=== PATIENT | female | born 1985 | race Caucasian/White ===

== ENCOUNTER → 2018-08-06 09:52 | Outpatient (CLI) | payer OTHER, SELFPAY ==
[2018-08-06 10:20] LABS: Add Manual Diff / Slide Review NO; Basophils Percent Auto 0.8 % (0-2); Hematocrit 38.9 % (36-46); Hemoglobin 13.2 g/dL (12.0-16.0); Mean Corpuscular Hemoglobin 29.7 PG (26-34); Mean Corpuscular Volume 87.3 fL (80-100); Monocytes Percent Auto 8.7 % (3-14); Neutrophils Absolute Auto 4300 /uL (3000-5900); Neutrophils Percent Auto 61.5 % (50-75); Platelet Count 174 X10^3/uL (150-400); Red Blood Cell Count 4.45 X10^6/uL (4.0-5.2); Red Cell Distribution Width 12.2 % (11.6-14.8)
[2018-08-06 10:51] LABS: Erythrocyte Sedimentation Rate 12 MM/HR (0-20)
[2018-08-06 11:25] LABS: C-Reactive Protein Quant < 0.5 mg/dL (<1.0)
== END ==
PROVIDERS: PCP Family Medicine; Visit Provider Naturopath
DX: R59.1 Generalized enlarged lymph nodes (principal)
CPT/HCPCS: 36415; 85025; 85651; 86140

== ENCOUNTER → 2019-07-13 06:39 | Outpatient (CLI) | payer OTHER, SELFPAY ==
[2019-07-13 08:49] LABS: Hematocrit 42.5 % (36-46); Hemoglobin 14.2 g/dL (12.0-16.0); Mean Corpuscular HGB Conc 33.5 % (30-36); Mean Corpuscular Hemoglobin 29.4 PG (26-34); Mean Corpuscular Volume 87.9 fL (80-100); Platelet Count 207 X10^3/uL (150-400); Red Blood Cell Count 4.84 X10^6/uL (4.0-5.2); Red Cell Distribution Width 13.1 % (11.6-14.8); White Blood Cell Count 4.6 X10^3/uL (4.5-11.0)
[2019-07-13 09:06] LABS: Alanine Aminotransferase 30 IU/L (9-52); Albumin 4.9 g/dL (3.5-5.0); Albumin Globulin Ratio 1.3 (1.0-2.8); Alkaline Phosphatase 61 U/L (38-126); Aspartate Aminotransferase 29 IU/L (14-36); Bilirubin Total 0.8 mg/dL (0.2-1.3); Blood Urea Nitrogen 12 mg/dL (7-17); Carbon Dioxide 24 mmol/L (22-32); Chloride 105 mmol/L (98-107); Cholesterol 179 mg/dL (140-199); Estimated Glomerular Filt Rate > 60.0 mL/min (>60); Globulin 3.8 g/dL (1.7-4.1); Glucose 88 mg/dL (70-100); HDL Cholesterol 79 mg/dL (40-60); HEMOLYSIS < 15 (0-50); LDL Cholesterol Calculated 88 mg/dL (<100); Potassium 4.5 mmol/L (3.4-5.1); Sodium 141 mmol/L (137-145); Total Protein 8.7 g/dL (6.3-8.2); Triglycerides 60 mg/dL (35-150)
[2019-07-13 09:20] LABS: Vitamin D 25 Hydroxy (D3) 66.6 ng/mL (30.0-100.0)
[2019-07-13 09:34] LABS: Thyroid Stimulating Hormone 1.59 uIU/mL (0.47-4.68)
== END ==
PROVIDERS: PCP Family Medicine; Visit Provider Naturopath
DX: R19.5 Other fecal abnormalities (principal); R10.2 Pelvic and perineal pain; K62.89 Other specified diseases of anus and rectum; Z13.220 Encounter for screening for lipoid disorders
CPT/HCPCS: 36415; 80053; 80061; 82306; 84443; 85027; 87177

== ENCOUNTER → 2019-07-14 07:13 | Outpatient (CLI) | payer OTHER, SELFPAY | PROVIDERS: PCP Family Medicine; Visit Provider Naturopath | DX: R19.5 Other fecal abnormalities (principal); R10.2 Pelvic and perineal pain; K62.89 Other specified diseases of anus and rectum; Z13.220 Encounter for screening for lipoid disorders | CPT/HCPCS: 87177 ==

== ENCOUNTER → 2019-07-15 06:57 | Outpatient (CLI) | payer OTHER, SELFPAY | PROVIDERS: PCP Family Medicine; Visit Provider Naturopath | DX: R19.5 Other fecal abnormalities (principal); R10.2 Pelvic and perineal pain; K62.89 Other specified diseases of anus and rectum; Z13.220 Encounter for screening for lipoid disorders | CPT/HCPCS: 87177 ==

== ENCOUNTER 2019-10-25 09:45 | Outpatient (RCR) | payer OTHER, SELFPAY ==
--- NOTE | 2019-09-14 12:26 | PT.OIE ---
Current Diagnoses Other specified diseases of anus and rectum (09/08/19) Pelvic and perineal pain (09/08/19) Frequency of micturition (09/08/19) Past Surgical History History of breast augmentation Visit Care Team Role Provider Type Honey Dhillon DO Primary Care Provider Physician Specialty: Family Practice Address: [address] [place] [address], [facility] [address], [place], [address] Email: [email or web address] Ewelina Delgado ND Attending Provider Non-Staff Specialty: Medical Address: [address] [place] [address], [id number] Email: Physical Therapy Initial Evaluation PT-OP-A Visit Information Start: 09/08/19 09:42 Freq: Status: Active Protocol: Document 09/08/19 09:45 [facility] (Rec: 09/08/19 11:12 [facility] [email or web address]) Out-Patient Physical Therapy Visit Information Visit Information Visit Type Initial Evaluation Visit Note 34 year old female with c/o urinary urgency and frequency that has been going on for a long time now and new c/o right sided pelvic pain that began last March Visit Start Time 09:45 Visit Stop Time 10:30 Total Visit Minutes 45 Visit Number 1 Evaluation Information Evaluation Date 09/08/19 PT-OP-B Current Condition Start: 09/08/19 09:42 Freq: Status: Active Protocol: Document 09/08/19 09:45 [facility] (Rec: 09/08/19 10:11 [facility] [id number]) Current Condition History of Current Condition Onset Date March 2019 Current Complaints pelvic pain and frequent urge to void History of Current Condition Rosario notes a ache in the right side of her vagina/pubic started in March. doesn't feel it with intercourse but feels it with sitting and sometimes walking. In the side of her vagina, also reports she has to void a lot, 7 years ago did a post void residual and still had quite a bit of urine left. Child births 2004, 2012. Always felt like she needed to void a lot but now it is all the time. Constant thought of voiding, wakes up to void during the night, sometimes she will void up to 5 times prior falling asleep but even with that she still wakes up 2-3 times to go. Activities include walking biking, hiking. Treatment Goals Patient/Caregiver Goals Goals include decreasing complaints of pelvic pain and improving her ability to fully empty her bladder. Prior Functional Status Baseline Function- ADL's Independent Baseline Function- Mobility Independent Current Functional Impairments (Reported) Functional Limitations- Other limited with long car trips and certain activities as she is always looking for a bathroom PT-OP-T Assessment and Plan Start: 09/08/19 09:42 Freq: Status: Active Protocol: Document 09/08/19 09:45 [facility] (Rec: 09/14/19 11:07 [facility] [email or web address]) Physical Therapy Assessment Rehab Potential Rehabilitation Potential Excellent Evaluation Complexity Number of Personal Factors/Comorbidities 0 Number of Body Systems Impaired 1-2 Clinical Presentation at Evaluation Stable Impairments Impairments Activity Tolerance,Functional Activities,Strength,Tone Other Impairments frequent voiding and difficulty fully emptying Goals Three Impairment c/o right sided pelvic pain Intermediate Goal (LTG) Rosario is no longer complaining of right sided pelvic pain at rest or with walking activities. There is no tenderness to palpation over the pubic tubercle. LTG Duration 8 weeks Two Impairment guarding of the illiococcygeus bilaterally with elevated tone Short Term Goal (STG) Rosario is educated in relaxed awareness of her pelvic floor and given pelvic floor stretches for a home program STG Duration 3-4 weeks [employer] Goal (LTG) Rosario is able to relax her pelvic floor to baseline on EMG biofeedback and is able to relax fully following a pelvic floor contraction. She is educated on realxed pelvic floor tone with voiding to improve the bladders ability to fully empty. LTG Duration 6-8 weeks One Impairment urinary frequency/urgency voiding > 13 xms daily and > 3 xms nightly Short Term Goal (STG) Rosario is educted in bladder irritants, given a bladder diary, and educated in urge deference technique to begin working on lengthening the intervals between voiding to every 1 hour STG Duration 4 weeks Intermediate Goal (LTG) Rosario is able to increase time between voiding to every 1.5-2 hours and only waking 1 xm per night to void LTG Duration 6-8 weeks Assessment Summary Assessment Rosario presents to physical therapy with complaints of urinary frequency and nocturia . She notes she wakes over 3 times at night to void and is constantly thinking about emptying her bladder during the day. She notes she feels as if she cannot fully empty her bladder. She also describes a right sided pelvic pain that began around March. She denies pain with intercourse but can feel the right sided pain with walking and at times with sitting. With examination today she is tender to palpation at the right pubic tubercle and rectus abdominals attachment to the tubercle. She is guarded in both lateral marroquin of her levator ani and tender to palpation. With EMG biofeedback she has a elevated resting tone at 5 uv but this increases to 8 with pelvic floor muscle activation. She tends to become tighter the more she contracts her pelvic floor and resting becomes more difficult. I started her today with stretches to relax the lower abdominal wall and pelvis. She was given a contract relax exercise to begin working on relaxed awareness of her pelvic floor. Physical Therapy Plan Frequency and Duration Frequency of Treatment 1x/Week Duration of Treatment 8 Plan of Care Start Date 09/08/19 Plan of Care End Date 11/03/19 Therapeutic Interventions Therapeutic Interventions Home Exercise Program,Manual Therapy,Neuromuscular Re- education,Patient/Caregiver Education,Self-Care/Home Management,Therapeutic Exercises Modalities Biofeedback Next Visit Focus/Plan Next Note Type Treatment Note Next Visit Plan review stretches for the abdominal fascia the pelvic floor.
--- NOTE | 2019-09-22 13:14 | PT.OTN ---
Current Diagnoses Other specified diseases of anus and rectum (09/22/19) Pelvic and perineal pain (09/22/19) Frequency of micturition (09/22/19) Physical Therapy Treatment Note PT-OP-A Visit Information Start: 09/08/19 09:42 Freq: Status: Active Protocol: Document 09/22/19 13:02 [facility] (Rec: 09/22/19 13:14 [facility] [email or web address]) Out-Patient Physical Therapy Visit Information Visit Information Visit Type Treatment Note Visit Start Time 09:45 Visit Stop Time 10:30 Total Visit Minutes 45 Visit Number 2 PT-OP-B Current Condition Start: 09/08/19 09:42 Freq: Status: Active Protocol: Document 09/08/19 09:45 [facility] (Rec: 09/08/19 10:11 [facility] [id number]) Current Condition History of Current Condition Onset Date March 2019 Current Complaints pelvic pain and frequent urge to void History of Current Condition Rosario notes a ache in the right side of her vagina/pubic started in March. doesn't feel it with intercourse but feels it with sitting and sometimes walking. In the side of her vagina, also reports she has to void a lot, 7 years ago did a post void residual and still had quite a bit of urine left. Child births 2004, 2012. Always felt like she needed to void a lot but now it is all the time. Constant thought of voiding, wakes up to void during the night, sometimes she will void up to 5 times prior falling asleep but even with that she still wakes up 2-3 times to go. Activities include walking biking, hiking. Treatment Goals Patient/Caregiver Goals Goals include decreasing complaints of pelvic pain and improving her ability to fully empty her bladder. Prior Functional Status Baseline Function- ADL's Independent Baseline Function- Mobility Independent Current Functional Impairments (Reported) Functional Limitations- Other limited with long car trips and certain activities as she is always looking for a bathroom PT-OP-C Subjective Start: 09/08/19 09:42 Freq: Status: Active Protocol: Document 09/22/19 13:02 [facility] (Rec: 09/22/19 13:14 [facility] [email or web address]) OP-PT Subjective Patient Comments Patient Comments pt reports she has been aware of how much tension she does hold in her pelvic floor. She is not able to do the stretches yet as she had a chest surgery and needs to wait 6 weeks. She has been working on not crossing her legs to relax the pelvic floor PT-OP-Q Treatments Start: 09/08/19 09:42 Freq: Status: Active Protocol: Document 09/22/19 13:02 [facility] (Rec: 09/22/19 13:14 [facility] [email or web address]) Therapeutic Exercises Supine Exercises 3 Supine Exercise Name diaphragmatic breathing Reps/Minutes x 5 2 Supine Exercise Name happy baby stretch using feet on the wall for support Reps/Minutes hold 1-4 min or until she can feel the pelvic floor relax 1 Supine Exercise Name pelvic floor long holds x 10 seconds and relax x 10 sec ( EMG biofeedback) Reps/Minutes 10 reps Comments elevated resting tone at 3.0 uv Prone Exercises 1 Prone Exercise Name hold due to recent chest surgery Manual Therapy Treatment Soft Tissue Mobilization 2 Body Location bladder visceral mobilizations 1 Body Location manual release of the suprapubic fascia and rectus abdominus attachments Body Position Supine Neuro Re-Education Treatment Other Activities 1 Details EMG biofeedback Comments relaxed awareness of the pelvic floor, initiated quick contractions for urge deference technique and bladder retraining. Pt to do quick flicks only with the urge technique as it is difficult for her to fully relax following a contraction PT-OP-T Assessment and Plan Start: 09/08/19 09:42 Freq: Status: Active Protocol: Document 09/22/19 13:02 [facility] (Rec: 09/22/19 13:14 [facility] [email or web address]) Physical Therapy Assessment Assessment Summary Assessment there is myofascial tightness noted across the suprapubic fascia right greater than left and decreased bladder mobility. Good tolerance to MFR, lowered resting tone to start off with today, needs longer rest time than contraction for long holds, pt to increase to 2 xms per day and work on happy baby stretch as well as diaphragmatic breathing Physical Therapy Plan Frequency and Duration Frequency of Treatment 1x/Week Duration of Treatment 8 Plan of Care Start Date 09/08/19 Plan of Care End Date 11/03/19 Next Visit Focus/Plan Next Note Type Treatment Note Next Visit Plan review home stretches, add in adductor stretches, diaphragmatic breathing and bladder retraining.
--- NOTE | 2019-09-29 09:45 | PT.OTN ---
Current Diagnoses Other specified diseases of anus and rectum (09/29/19) Pelvic and perineal pain (09/29/19) Frequency of micturition (09/29/19) Physical Therapy Treatment Note PT-OP-A Visit Information Start: 09/08/19 09:42 Freq: Status: Active Protocol: Document 09/29/19 09:45 [facility] (Rec: 10/01/19 13:34 [facility] [email or web address]) Out-Patient Physical Therapy Visit Information Visit Information Visit Type Treatment Note Visit Start Time 09:45 Visit Stop Time 10:30 Total Visit Minutes 45 Visit Number 3 PT-OP-B Current Condition Start: 09/08/19 09:42 Freq: Status: Active Protocol: Document 09/08/19 09:45 [facility] (Rec: 09/08/19 10:11 [facility] [id number]) Current Condition History of Current Condition Onset Date March 2019 Current Complaints pelvic pain and frequent urge to void History of Current Condition Rosario notes a ache in the right side of her vagina/pubic started in March. doesn't feel it with intercourse but feels it with sitting and sometimes walking. In the side of her vagina, also reports she has to void a lot, 7 years ago did a post void residual and still had quite a bit of urine left. Child births 2004, 2012. Always felt like she needed to void a lot but now it is all the time. Constant thought of voiding, wakes up to void during the night, sometimes she will void up to 5 times prior falling asleep but even with that she still wakes up 2-3 times to go. Activities include walking biking, hiking. Treatment Goals Patient/Caregiver Goals Goals include decreasing complaints of pelvic pain and improving her ability to fully empty her bladder. Prior Functional Status Baseline Function- ADL's Independent Baseline Function- Mobility Independent Current Functional Impairments (Reported) Functional Limitations- Other limited with long car trips and certain activities as she is always looking for a bathroom PT-OP-C Subjective Start: 09/08/19 09:42 Freq: Status: Active Protocol: Document 09/29/19 09:45 [facility] (Rec: 10/01/19 13:34 [facility] [email or web address]) OP-PT Subjective Patient Comments Patient Comments pt reports she is not thinking about voiding as much now. She is also more aware that she does guard in her upper abdominal wall and she is trying to avoid doing this PT-OP-Q Treatments Start: 09/08/19 09:42 Freq: Status: Active Protocol: Document 09/29/19 09:45 [facility] (Rec: 10/01/19 13:34 [facility] [email or web address]) Therapeutic Exercises Supine Exercises 3 Supine Exercise Name diaphragmatic breathing Reps/Minutes x 5 2 Supine Exercise Name happy baby stretch using feet on the wall for support Reps/Minutes hold 1-4 min or until she can feel the pelvic floor relax Manual Therapy Treatment Soft Tissue Mobilization 2 Body Location bladder visceral mobilizations 1 Body Location manual release of the suprapubic fascia and rectus abdominus attachments Body Position Supine Neuro Re-Education Treatment Other Activities 2 Details bladder retraining 1 Details EMG biofeedback Comments relaxed awareness of the pelvic floor, initiated quick contractions for urge deference tenique and bladder retraining. Pt to do quick flicks only with the urge technque as it is difficult for her to fully relax following a contraction PT-OP-T Assessment and Plan Start: 09/08/19 09:42 Freq: Status: Active Protocol: Document 09/29/19 09:45 [facility] (Rec: 10/01/19 13:34 [facility] [email or web address]) Physical Therapy Assessment Assessment Summary Assessment pt still has some elevated tone at rest. She is becomming more aware of holding tension both in her pelvic floor and abdominal wall Physical Therapy Plan Frequency and Duration Frequency of Treatment 1x/Week Duration of Treatment 8 Plan of Care Start Date 09/08/19 Plan of Care End Date 11/03/19 Next Visit Focus/Plan Next Note Type Treatment Note Next Visit Plan add in adductor stretches, review diaphragmatic breathing and bladder retraining. Continue to work on neuro re- education of the pelvic floor.
--- NOTE | 2019-10-26 13:06 | PT.OTN ---
Current Diagnoses Other specified diseases of anus and rectum (10/25/19) Pelvic and perineal pain (10/25/19) Frequency of micturition (10/25/19) Physical Therapy Treatment Note PT-OP-A Visit Information Start: 09/08/19 09:42 Freq: Status: Active Protocol: Document 10/25/19 09:45 [facility] (Rec: 10/26/19 13:06 [facility] [email or web address]) Out-Patient Physical Therapy Visit Information Visit Information Visit Type Treatment Note Visit Start Time 09:45 Visit Stop Time 10:30 Total Visit Minutes 45 Visit Number 4 PT-OP-B Current Condition Start: 09/08/19 09:42 Freq: Status: Active Protocol: Document 09/08/19 09:45 [facility] (Rec: 09/08/19 10:11 [facility] [id number]) Current Condition History of Current Condition Onset Date March 2019 Current Complaints pelvic pain and frequent urge to void History of Current Condition Rosario notes a ache in the right side of her vagina/pubic started in March. doesn't feel it with intercourse but feels it with sitting and sometimes walking. In the side of her vagina, also reports she has to void a lot, 7 years ago did a post void residual and still had quite a bit of urine left. Child births 2004, 2012. Always felt like she needed to void a lot but now it is all the time. Constant thought of voiding, wakes up to void during the night, sometimes she will void up to 5 times prior falling asleep but even with that she still wakes up 2-3 times to go. Activities include walking biking, hiking. Treatment Goals Patient/Caregiver Goals Goals include decreasing complaints of pelvic pain and improving her ability to fully empty her bladder. Prior Functional Status Baseline Function- ADL's Independent Baseline Function- Mobility Independent Current Functional Impairments (Reported) Functional Limitations- Other limited with long car trips and certain activities as she is always looking for a bathroom PT-OP-C Subjective Start: 09/08/19 09:42 Freq: Status: Active Protocol: Document 10/25/19 09:45 [facility] (Rec: 10/26/19 13:06 [facility] [email or web address]) OP-PT Subjective Patient Comments Patient Comments symptoms better at home but realized that stress of being out and about without a bathroom increases urgency. She went on a field trip with her son to [place] and noted urgency during that time PT-OP-Q Treatments Start: 09/08/19 09:42 Freq: Status: Active Protocol: Document 10/25/19 09:45 [facility] (Rec: 10/26/19 13:06 [facility] [email or web address]) Therapeutic Exercises Supine Exercises 4 Supine Exercise Name quick contractions of the pelvic floor 3 Supine Exercise Name diaphragmatic breathing Reps/Minutes x 5 2 Supine Exercise Name happy baby stretch using feet on the wall for support Reps/Minutes hold 1-4 min or until she can feel the pelvic floor relax 1 Supine Exercise Name pelvic floor long holds x 10 seconds and relax x 10 sec ( EMG biofeedback) Reps/Minutes 10 reps Comments elevated resting tone at 3.0 uv Other Exercises 2 Other Exercise Name piriformis stretch Side bilateral Reps/Minutes hold 1-2 min 1 Other Exercise Name justina pose Side bilateral Manual Therapy Treatment Soft Tissue Mobilization 2 Body Location bladder visceral mobilizations 1 Body Location manual release of the suprapubic fascia and rectus abdominus attachments Body Position Supine PT-OP-T Assessment and Plan Start: 09/08/19 09:42 Freq: Status: Active Protocol: Document 10/25/19 09:45 [facility] (Rec: 10/26/19 13:06 [facility] [email or web address]) Physical Therapy Assessment Assessment Summary Assessment Rosario is able to relax to 1.6 uv today with EMG biofeedback . She is still not fully able to fully do her stretches due to her chest surgery she had so she would like wait until she is fully clear to put weight through her hands and then come back for a few visits. She has one visit left and then she will hold until she is cleared for more. Physical Therapy Plan Frequency and Duration Frequency of Treatment 1x/Week Duration of Treatment 8 Plan of Care Start Date 09/08/19 Plan of Care End Date 11/03/19 Next Visit Focus/Plan Next Note Type Treatment Note Next Visit Plan review all established stretches and bladder retraining
--- NOTE | 2020-07-23 10:17 | PT.OPDS ---
Current Diagnoses Other specified diseases of anus and rectum (10/25/19) Pelvic and perineal pain (10/25/19) Frequency of micturition (10/25/19) Visit Care Team Role Provider Type Honey Dhillon DO Primary Care Provider Non-Staff Specialty: Family Practice Address: [address] [place] [address], [facility] [address], [address] Email: [email or web address] Ewelina Delgado ND Attending Provider Non-Staff Specialty: Medical Address: [address] [place] [address], [id number] Email: Visit Number Visit Number 4 Discharge Summary PT-OP-B Current Condition Start: 09/08/19 09:42 Freq: Status: Active Protocol: Document 09/08/19 09:45 [facility] (Rec: 09/08/19 10:11 [facility] [id number]) Current Condition History of Current Condition Onset Date March 2019 Current Complaints pelvic pain and frequent urge to void History of Current Condition Rosario notes a ache in the right side of her vagina/pubic started in March. doesn't feel it with intercourse but feels it with sitting and sometimes walking. In the side of her vagina, also reports she has to void a lot, 7 years ago did a post void residual and still had quite a bit of urine left. Child births 2004, 2012. Always felt like she needed to void a lot but now it is all the time. Constant thought of voiding, wakes up to void during the night, sometimes she will void up to 5 times prior falling asleep but even with that she still wakes up 2-3 times to go. Activities include walking biking, hiking. Treatment Goals Patient/Caregiver Goals Goals include decreasing complaints of pelvic pain and improving her ability to fully empty her bladder. Prior Functional Status Baseline Function- ADL's Independent Baseline Function- Mobility Independent Current Functional Impairments (Reported) Functional Limitations- Other limited with long car trips and certain activities as she is always looking for a bathroom PT-OP-C Subjective Start: 09/08/19 09:42 Freq: Status: Active Protocol: Document 10/25/19 09:45 [facility] (Rec: 10/26/19 13:06 [facility] [email or web address]) OP-PT Subjective Patient Comments Patient Comments symptoms better at home but realized that stress of being out and about without a bathroom increases urgency. She went on a field trip with her son to [place] and noted urgency during that time PT-OP-T Assessment and Plan Start: 09/08/19 09:42 Freq: Status: Active Protocol: Document 07/23/20 10:15 [facility] (Rec: 07/23/20 10:17 [facility] [email or web address]) Physical Therapy Assessment Assessment Summary Assessment Rosario has not been seen since October 2019. At the time of her last visit her resting tone had decreased to 1.6 uv on EMG biofeedback. She was restricted with what exercises she could do due to a chest surgery she had had. She was independent with the stretches she was able to work on at home. She will be DC at this time to [facility] Physical Therapy Plan Discharge Physical Therapy Discharge Reasons No Longer Attending PT
== END 2020-07-24 11:36 ==
LOC: PHYS 09:45
PROVIDERS: PCP Family Medicine; Visit Provider Naturopath
DX: R10.2 Pelvic and perineal pain (principal); K62.89 Other specified diseases of anus and rectum; R35.0 Frequency of micturition
CPT/HCPCS: 97110; 97112; 97140; 97161

== ENCOUNTER → 2023-06-04 07:40 | Outpatient (CLI) | payer OTHER, SELFPAY ==
[2023-06-04 09:21] LABS: Add Manual Diff / Slide Review NO; Basophils Absolute Auto 0 /uL (0-100); Basophils Percent Auto 0.8 % (0-2); Eosinophils Absolute Auto 100 /uL (0-450); Eosinophils Percent Auto 1.5 % (2-4); Hematocrit 39.7 % (36-46); Hemoglobin 13.4 g/dL (12.0-16.0); Lymphocytes Absolute Auto 1800 /uL (1100-4500); Lymphocytes Percent Auto 30.2 % (25-40); Mean Corpuscular HGB Conc 33.7 % (30-36); Mean Corpuscular Hemoglobin 28.6 PG (26-34); Mean Corpuscular Volume 84.8 fL (80-100); Monocytes Absolute Auto 600 /uL (0-900); Monocytes Percent Auto 9.7 % (3-14); Neutrophils Absolute Auto 3500 /uL (1500-7000); Neutrophils Percent Auto 57.8 % (50-75); Platelet Count 228 X10^3/uL (150-400); Red Blood Cell Count 4.68 X10^6/uL (4.0-5.2); White Blood Cell Count 6.1 X10^3/uL (4.5-11.0)
[2023-06-04 09:43] LABS: Alanine Aminotransferase 27 IU/L (<35); Albumin 4.8 g/dL (3.5-5.0); Albumin Globulin Ratio 1.5 (1.0-2.8); Alkaline Phosphatase 69 U/L (38-126); Aspartate Aminotransferase 24 IU/L (14-36); BUN Creatinine Ratio 19.4 (6-22); Bilirubin Total 0.8 mg/dL (0.2-1.3); Blood Urea Nitrogen 13 mg/dL (7-17); Calcium 9.4 mg/dL (8.4-10.2); Carbon Dioxide 24 mmol/L (22-32); Chloride 102 mmol/L (98-107); Cholesterol 188 mg/dL (140-199); Estimated Glomerular Filt Rate > 60 mL/min (>60); Globulin 3.3 g/dL (1.7-4.1); Glucose 98 mg/dL (70-100); HDL Cholesterol 80 mg/dL (40-60); HEMOLYSIS < 15 (0-50); LDL Cholesterol Calculated 95 mg/dL (<100); Potassium 4.3 mmol/L (3.4-5.1); Sodium 137 mmol/L (137-145); Total Protein 8.1 g/dL (6.3-8.2); Triglycerides 65 mg/dL (35-150)
[2023-06-04 10:01] LABS: Free T3, Triiodothyronine Free 3.81 pg/mL (2.77-5.27); Free T4, Direct Thyroxine 1.13 ng/dL (0.78-2.19)
[2023-06-04 10:14] LABS: Thyroid Stimulating Hormone 1.15 uIU/mL (0.47-4.68)
[2023-06-04 10:17] LABS: Ferritin 15 ng/mL (6-137)
== END ==
PROVIDERS: PCP Nurse Practitioner Family; Referring Provider Nurse Practitioner Family; Visit Provider Nurse Practitioner Family
DX: R53.83 Other fatigue (principal); N64.4 Mastodynia; Z13.1 Encounter for screening for diabetes mellitus; Z13.220 Encounter for screening for lipoid disorders
CPT/HCPCS: 36415; 80053; 80061; 82728; 84439; 84443; 84481; 85025

== ENCOUNTER → 2023-08-25 07:44 | Outpatient (CLI) | payer OTHER, SELFPAY ==
[2023-08-25 09:13] LABS: Add Manual Diff / Slide Review NO; Basophils Absolute Auto 0 /uL (0-100); Basophils Percent Auto 0.8 % (0-2); Eosinophils Absolute Auto 100 /uL (0-450); Hematocrit 38.5 % (36-46); Hemoglobin 13.3 g/dL (12.0-16.0); Lymphocytes Absolute Auto 1700 /uL (1100-4500); Lymphocytes Percent Auto 29.1 % (25-40); Mean Corpuscular HGB Conc 34.6 % (30-36); Mean Corpuscular Hemoglobin 29.4 PG (26-34); Mean Corpuscular Volume 84.9 fL (80-100); Monocytes Absolute Auto 700 /uL (0-900); Monocytes Percent Auto 12.1 % (3-14); Neutrophils Absolute Auto 3300 /uL (1500-7000); Platelet Count 211 X10^3/uL (150-400); Red Blood Cell Count 4.54 X10^6/uL (4.0-5.2); Red Cell Distribution Width 13.2 % (11.6-14.8); White Blood Cell Count 5.8 X10^3/uL (4.5-11.0)
[2023-08-25 09:42] LABS: Alanine Aminotransferase 27 IU/L (<35); Albumin 4.6 g/dL (3.5-5.0); Albumin Globulin Ratio 1.3 (1.0-2.8); Alkaline Phosphatase 59 U/L (38-126); Amylase 52 U/L (30-110); Aspartate Aminotransferase 26 IU/L (14-36); BUN Creatinine Ratio 15.3 (6-22); Blood Urea Nitrogen 11 mg/dL (7-17); C-Reactive Protein Quant 0.7 mg/dL (<1.0); Calcium 9.9 mg/dL (8.4-10.2); Carbon Dioxide 23 mmol/L (22-32); Chloride 103 mmol/L (98-107); Estimated Glomerular Filt Rate > 60 mL/min (>60); Globulin 3.5 g/dL (1.7-4.1); Glucose 97 mg/dL (70-100); HEMOLYSIS < 15 (0-50); Lipase 142 U/L (23-300); Potassium 3.8 mmol/L (3.4-5.1); Sodium 137 mmol/L (137-145); Total Protein 8.1 g/dL (6.3-8.2)
== END ==
PROVIDERS: PCP Nurse Practitioner Family; Referring Provider Nurse Practitioner Family; Visit Provider Nurse Practitioner Family
DX: R10.30 Lower abdominal pain, unspecified (principal); R10.2 Pelvic and perineal pain
CPT/HCPCS: 36415; 80053; 82150; 83690; 85025; 86140; 87045; 87177; 87899

== ENCOUNTER → 2023-08-26 06:46 | Outpatient (CLI) | payer OTHER, SELFPAY ==
--- NOTE | 2023-08-26 | DI.US.S_ITS ---
PROCEDURE: US ABDOMEN COMPLETE INDICATIONS: LOWER ABDOMINAL PAIN TECHNIQUE: Real-time scanning was performed of the abdominal and retroperitoneal organs, with image documentation. COMPARISON: None. FINDINGS: Liver: Liver is normal in size and homogeneous in echotexture. Gallbladder: Several nonobstructing stones are seen that measure approximately 1 cm. The gallbladder wall is not thickened, measuring 3 mm or less. No specific pericholecystic fluid is seen. The sonographic Mcmahan sign is it is positive. Biliary ducts: Intrahepatic bile ducts are non-dilated. Extrahepatic bile duct caliber measures 4 mm. Normal is 6-7 mm or less in diameter, or 10 mm or less post-cholecystectomy. Pancreas: Visualized portions of the pancreas are sonographically normal. Spleen: Spleen is normal in size and homogeneous in echotexture. Kidneys: Kidneys are normal in size and echotexture. Right kidney measures 11 cm long; left kidney measures 10.8 cm long. No hydronephrosis or nephrolithiasis. No solid masses. Aorta: Visualized aorta is normal in caliber at less than 3 cm. Iliacs: Proximal common iliac arteries are normal in caliber at less than 2.5 cm. IVC: Intrahepatic inferior vena cava is patent. Miscellaneous: No free abdominal fluid. IMPRESSION: Numerous gallstones are seen. There is a positive sonographic Mcmahan sign. No additional sonographic signs of cholecystitis are seen. No biliary dilatation is seen. Dictated by: Porfirio Elmore M.D. on 08/26/2023 at 12:06 Approved by: Porfirio Elmore M.D. on 08/26/2023 at 12:07
== END ==
PROVIDERS: PCP Nurse Practitioner Family; Referring Provider Nurse Practitioner Family; Visit Provider Nurse Practitioner Family
DX: R10.30 Lower abdominal pain, unspecified (principal); K80.20 Calculus of gallbladder without cholecystitis without obstruction
CPT/HCPCS: 76700

== ENCOUNTER → 2023-08-27 06:51 | Outpatient (CLI) | payer OTHER, SELFPAY ==
--- NOTE | 2023-08-27 06:52 | DI.US.S_ITS ---
PROCEDURE: US PELVIC COMPLETE INDICATIONS: PELVIC/PERINEAL PAIN TECHNIQUE: Real-time scanning was performed of the pelvic organs, with image documentation and declined endovaginal scan. COMPARISON: None. FINDINGS: Uterus: Uterus is anteverted and normal in size at 8.4 x 5.0 x 5.8 cm. The myometrium is homogeneous. The endometrium measures 12.4 mm combined thickness. Ovaries: The right ovary measures 2.5 x 2.8 x 1.9 cm, with a calculated ovarian volume of 7.1 cc. The left ovary measures 4.0 x 2.4 x 1.7 cm, with a calculated ovarian volume of 8.6 cc. The ovaries have a normal sonographic appearance. Less than 12 follicles can be seen in each ovary. No adnexal masses are seen. Other: No pathologic free abdominal or pelvic fluid. IMPRESSION: Unremarkable transabdominal pelvic ultrasound. We strive to produce accurate, complete, and clear reports of imaging services. To assist us in improving patient care, this report was composed using standard report templates and voice recognition software. Therefore, it may contain abnormal punctuation, insertions and/or omissions. Occasional wrong-word or sound-alike substitutions may occur. Though we review the report and make efforts to correct it, we do recommend that the report be read carefully in proper context to recognize any text inaccuracies. Dictated by: Erika Valle M.D. on 08/27/2023 at 11:01 Approved by: Erika Valle M.D. on 08/27/2023 at 11:04
== END ==
PROVIDERS: PCP Nurse Practitioner Family; Referring Provider Nurse Practitioner Family; Visit Provider Nurse Practitioner Family
DX: R10.2 Pelvic and perineal pain (principal)
CPT/HCPCS: 76856; 93976

== ENCOUNTER → 2023-09-04 07:59 | Outpatient (CLI) | payer OTHER, SELFPAY | PROVIDERS: PCP Nurse Practitioner Family; Referring Provider Nurse Practitioner Family; Visit Provider Nurse Practitioner Family | DX: R10.30 Lower abdominal pain, unspecified (principal) | CPT/HCPCS: 87205 ==

== ENCOUNTER → 2024-12-06 06:58 | Outpatient (CLI) | payer OTHER, SELFPAY ==
[2024-12-06 07:32] LABS: Add Manual Diff / Slide Review NO; Basophils Absolute Auto 0 /uL (0-100); Basophils Percent Auto 0.7 % (0-2); Eosinophils Absolute Auto 100 /uL (0-450); Eosinophils Percent Auto 2.7 % (2-4); Hematocrit 40.1 % (36-46); Hemoglobin 13.4 g/dL (12.0-16.0); Lymphocytes Absolute Auto 2300 /uL (1100-4500); Lymphocytes Percent Auto 41.8 % (25-40); Mean Corpuscular HGB Conc 33.3 % (30-36); Mean Corpuscular Hemoglobin 28.7 PG (26-34); Mean Corpuscular Volume 86.1 fL (80-100); Monocytes Absolute Auto 500 /uL (0-900); Monocytes Percent Auto 9.1 % (3-14); Neutrophils Absolute Auto 2500 /uL (1500-7000); Neutrophils Percent Auto 45.7 % (50-75); Platelet Count 247 X10^3/uL (150-400); Red Blood Cell Count 4.66 X10^6/uL (4.0-5.2); White Blood Cell Count 5.6 X10^3/uL (4.5-11.0)
[2024-12-06 07:58] LABS: Alanine Aminotransferase 21 IU/L (<35); Albumin 4.7 g/dL (3.5-5.0); Albumin Globulin Ratio 1.5 (1.0-2.8); Alkaline Phosphatase 51 U/L (38-126); Aspartate Aminotransferase 24 IU/L (14-36); BUN Creatinine Ratio 16.5 (6-22); Bilirubin Total 0.5 mg/dL (0.2-1.3); Blood Urea Nitrogen 13 mg/dL (7-17); Calcium 9.5 mg/dL (8.4-10.2); Carbon Dioxide 26 mmol/L (22-32); Chloride 106 mmol/L (98-107); Cholesterol 227 mg/dL (140-199); Estimated Glomerular Filt Rate > 60 mL/min (>60); Globulin 3.2 g/dL (1.7-4.1); Glucose 96 mg/dL (70-100); HDL Cholesterol 82 mg/dL (40-60); HEMOLYSIS < 15 (0-50); LDL Cholesterol Calculated 132 mg/dL (<100); Potassium 4.2 mmol/L (3.4-5.1); Sodium 139 mmol/L (137-145); Total Protein 7.9 g/dL (6.3-8.2); Triglycerides 66 mg/dL (35-150)
[2024-12-06 08:12] LABS: Free T4, Direct Thyroxine 1.31 ng/dL (0.78-2.19)
[2024-12-06 08:25] LABS: Thyroid Stimulating Hormone 2.09 uIU/mL (0.47-4.68)
[2024-12-06 08:30] LABS: Ferritin 14 ng/mL (6-137)
[2024-12-07 07:08] LABS: Thyroid Peroxidase Antibodies 11 IU/mL (0-34)
== END ==
PROVIDERS: PCP Nurse Practitioner Family; Referring Provider Naturopath; Visit Provider Naturopath
DX: Z00.00 Encounter for general adult medical examination without abnormal findings (principal); R53.83 Other fatigue
CPT/HCPCS: 36415; 80053; 80061; 82728; 84439; 84443; 84481; 85025; 86376

== ENCOUNTER → 2024-12-19 06:54 | Outpatient (CLI) | payer OTHER, SELFPAY ==
--- NOTE | 2024-12-19 06:55 | DI.US.S_ITS ---
PROCEDURE: US ABDOMEN COMPLETE INDICATIONS: calculus of gallbladder TECHNIQUE: Real-time scanning was performed of the abdominal and retroperitoneal organs, with image documentation. COMPARISON: [facility], , US ABDOMEN COMPLETE, 08/26/2023, 6:57. FINDINGS: Liver: Liver is normal in size and homogeneous in echotexture. Gallbladder: Cholelithiasis. No gallbladder wall thickening or pericholecystic fluid Common bile duct: 3.3 mm. Pancreas: Visualized portions of the pancreas are within normal limits. Spleen: Spleen is normal in size and homogeneous in echotexture. Kidneys: Kidneys are normal in size and echotexture. No hydronephrosis or nephrolithiasis. No solid mass lesions. Aorta: Visualized aorta is unremarkable without aneurysm. Iliac Arteries: Proximal common iliac arteries are unremarkable. IVC: Intrahepatic inferior vena cava is patent. Miscellaneous: No free abdominal fluid. IMPRESSION: Cholelithiasis Approved by: Edmond Carr M.D. on 12/19/2024 at 18:23
== END ==
LOC: US 06:55
PROVIDERS: PCP Nurse Practitioner Family; Referring Provider Naturopath; Visit Provider Naturopath
DX: K80.20 Calculus of gallbladder without cholecystitis without obstruction (principal)
CPT/HCPCS: 76700

== ENCOUNTER → 2025-01-25 06:48 | Outpatient (CLI) | payer OTHER, SELFPAY ==
[2025-01-25 07:59] LABS: HEMOLYSIS < 15 (0-50); Iron 86 ug/dL (37-170)
[2025-01-25 08:05] LABS: C-Reactive Protein Quant < 0.5 mg/dL (<1.0); Glucose 97 mg/dL (70-100); Magnesium 1.9 mg/dL (1.6-2.3)
[2025-01-25 08:10] LABS: Percent Iron Saturation 24 % (15-50); Total Iron Binding Capacity 364 ug/dL (265-497); Transferrin 301 mg/dL (206-381)
[2025-01-25 08:19] LABS: Vitamin D 25 Hydroxy (D3) 56.3 ng/mL (30.0-100.0)
[2025-01-25 08:20] LABS: Follicle Stimulating Hormone 11.9 mIU/mL
[2025-01-25 08:36] LABS: Estradiol, Total 29.7 pg/mL
[2025-01-25 08:39] LABS: Ferritin 17 ng/mL (6-137)
[2025-01-25 08:50] LABS: Vitamin B12 987 pg/mL (239-931)
[2025-01-26 03:36] LABS: Apolipoprotein B 95 mg/dL (<90)
== END ==
PROVIDERS: PCP Nurse Practitioner Family; Referring Provider Nurse Practitioner Family; Visit Provider Nurse Practitioner Family
DX: Z00.00 Encounter for general adult medical examination without abnormal findings (principal); R25.3 Fasciculation; E78.00 Pure hypercholesterolemia, unspecified
CPT/HCPCS: 36415; 82172; 82306; 82607; 82670; 82728; 82947; 83001; 83540; 83550; 83735; 86140

== ENCOUNTER → 2025-03-30 11:58 | Outpatient (CLI) | payer OTHER, SELFPAY ==
--- NOTE | 2025-03-30 11:59 | DI.US.S_ITS ---
PROCEDURE: US PELVIC COMPLETE INDICATIONS: DUB; CHRONIC RIGHT PELVIC PAIN TECHNIQUE: Real-time transabdominal scanning was performed of the pelvic organs, with image documentation. COMPARISON: [facility], , US PELVIC COMPLETE, 08/27/2023, 7:00. FINDINGS: Uterus: Uterus is anteverted and normal in size at 10.3 x 5.5 x 3.8 cm. The myometrium is homogeneous. The endometrium measures 10.5 mm combined thickness. Ovaries: The right ovary measures 3.1 x 2.4 x 1.7 cm, with a calculated ovarian volume of 6.7 cc. The left ovary measures 4 x 3.1 x 2.3 cm, with a calculated ovarian volume of 14.8 cc. The ovaries have a normal sonographic appearance. Less than 12 follicles can be seen in each ovary. No adnexal masses are seen. Other: No pathologic free abdominal or pelvic fluid. IMPRESSION: Unremarkable examination with no adnexal mass or focal lesion in the uterus. We strive to produce accurate, complete, and clear reports of imaging services. To assist us in improving patient care, this report was composed using standard report templates and voice recognition software. Therefore, it may contain abnormal punctuation, insertions and/or omissions. Occasional wrong-word or sound-alike substitutions may occur. Though we review the report and make efforts to correct it, we do recommend that the report be read carefully in proper context to recognize any text inaccuracies. Dictated by: Miguelito Keen M.D. on 03/30/2025 at 17:58 Approved by: Miguelito Keen M.D. on 03/30/2025 at 18:00
== END ==
PROVIDERS: PCP Nurse Practitioner Family; Referring Provider Nurse Practitioner Family; Visit Provider Nurse Practitioner Family
DX: N92.6 Irregular menstruation, unspecified (principal); R10.2 Pelvic and perineal pain
CPT/HCPCS: 76856

== ENCOUNTER → 2025-05-31 08:08 | Outpatient (CLI) | payer OTHER, SELFPAY ==
[2025-06-05 18:09] LABS: H. Pylori Antigen Stool Negative (Negative)
[2025-06-06 15:09] LABS: Calprotectin, Stool < 5 ug/g (0-120)
== END ==
PROVIDERS: PCP Nurse Practitioner Family; Referring Provider Nurse Practitioner Family; Visit Provider Nurse Practitioner Family
DX: K92.1 Melena (principal); R10.11 Right upper quadrant pain; R10.31 Right lower quadrant pain; R19.5 Other fecal abnormalities
CPT/HCPCS: 83993; 87338

== ENCOUNTER → 2025-06-20 13:29 | Outpatient (CLI) | payer OTHER, SELFPAY ==
--- NOTE | 2025-06-20 13:34 | DI.US.S_ITS ---
US breast RT limited: 06/20/2025. BI-RADS: 0 CLINICAL: 40-year old female for right diagnostic breast ultrasound. Tyrer- Cuzick lifetime risk of 13.3%. No personal or first-degree family history of breast cancer. Current reported family history of breast cancer: maternal grandmother. The patient presents for generalized lumpiness of the right breast. Patient declines mammogram. PRIOR EXAMS: No prior examinations available. ULTRASOUND TECHNIQUE: Real-time quick scale and color doppler imaging of the area of clinical interest was performed with image documentation. TARGETED Right Breast Ultrasound: Real-time ultrasound exam was performed focused to area of clinical and/or imaging concern. ULTRASOUND FINDINGS Right: Upper at 11:30, 3 cm from nipple, measuring 0.9 x 0.4 x 0.7 cm: There is a simple anechoic cyst. This is benign. Right: Upper Outer at 9:30, 5 cm from nipple, measuring 0.8 x 0.4 x 0.7 cm: There is a complicated cyst showing posterior acoustic enhancement. Doppler shows no vascularity. Right: Upper Outer at 9:30, 4 cm from nipple, measuring 0.4 x 0.3 x 0.9 cm: There is a complicated cyst showing posterior acoustic enhancement. Right: Additionally, the remainder of the right breast was scanned, and equal opportunity representative images were taken at 12:00, 3:00, and 6:00, 5 cm from the nipple. No suspicious sonographic abnormalities were identified at these sites. There is no right axillary lymphadenopathy. IMPRESSION: Right * Incomplete - Needs additional imaging evaluation. RECOMMENDATIONS Bilateral * Further evaluation with diagnostic mammography (This exam is technically incomplete in the absence of mammography. If the patient continues to decline mammogram, recommend at least short interval follow up of the complicated cysts in the right breast with ultrasound in 6 months. Clinical follow up is also recommended for the patient's symptoms). COMMENTS: Findings and recommendations were conveyed to the patient during today's evaluation. OVERALL ASSESSMENT CATEGORY BI-RADS-0: Incomplete - Need Additional Imaging Evaluation. ELECTRONICALLY SIGNED: Alba Powell M.D. on 06/20/2025 at 04:57:16 PM PT Interpreting Station ID: [id number]
== END ==
LOC: US 13:33
PROVIDERS: PCP Nurse Practitioner Family; Referring Provider Nurse Practitioner Family; Visit Provider Nurse Practitioner Family
DX: N60.01 Solitary cyst of right breast (principal); R92.8 Other abnormal and inconclusive findings on diagnostic imaging of breast; M79.89 Other specified soft tissue disorders; Z80.3 Family history of malignant neoplasm of breast
CPT/HCPCS: 76642

== ENCOUNTER → 2025-08-10 07:14 | Outpatient (CLI) | payer OTHER, SELFPAY ==
[2025-08-10 08:02] LABS: Add Manual Diff / Slide Review NO; Hematocrit 40.3 % (36-46); Hemoglobin 13.7 g/dL (12.0-16.0); Lymphocytes Absolute Auto 1900 /uL (1100-4500); Mean Corpuscular HGB Conc 33.9 % (30-36); Mean Corpuscular Hemoglobin 29.7 PG (26-34); Mean Corpuscular Volume 87.6 fL (80-100); Platelet Count 226 X10^3/uL (150-400)
[2025-08-10 08:13] LABS: HEMOLYSIS < 15 (0-50); Iron 85 ug/dL (37-170)
[2025-08-10 08:25] LABS: Percent Iron Saturation 26 % (15-50); Total Iron Binding Capacity 331 ug/dL (265-497); Transferrin 291 mg/dL (206-381)
[2025-08-10 08:31] LABS: Free T4, Direct Thyroxine 1.24 ng/dL (0.78-2.19)
[2025-08-10 08:45] LABS: Thyroid Stimulating Hormone 1.55 uIU/mL (0.47-4.68)
[2025-08-10 08:45] LABS: Cholesterol 191 mg/dL (140-199); Glucose 88 mg/dL (70-99); HDL Cholesterol 87 mg/dL (40-60); Triglycerides 58 mg/dL (35-150)
[2025-08-10 09:20] LABS: Ferritin 62 ng/mL (6-137)
== END ==
PROVIDERS: PCP Nurse Practitioner Family; Referring Provider Naturopath; Visit Provider Naturopath
DX: E61.1 Iron deficiency (principal); E78.00 Pure hypercholesterolemia, unspecified; R53.83 Other fatigue
CPT/HCPCS: 36415; 80061; 82172; 82728; 82947; 83540; 83550; 83695; 84439; 84443; 85025

== ENCOUNTER → 2025-08-24 13:43 | Outpatient (CLI) | payer OTHER, SELFPAY ==
--- NOTE | 2025-08-24 13:44 | DI.US.S_ITS ---
PROCEDURE: US PELVIC COMPLETE INDICATIONS: PELVIC PAIN AND BREAK THROUGH BLEEDING TECHNIQUE: Real-time scanning was performed of the pelvic organs, with image documentation. Additional endovaginal scanning was necessary due to incomplete visualization of the adnexal and endometrial structures by transabdominal scanning. COMPARISON: [facility], [place], US PELVIC COMPLETE, 03/30/2025, 12:03. FINDINGS: Uterus: Uterus is anteverted and enlarged and size at 10.2 x 3.6 x 6.5 cm. The myometrium is homogeneous. The endometrium measures 10 mm combined thickness. Ovaries: The right ovary measures 1.8 x 3.3 x 1.8 cm, with a calculated ovarian volume of 5.5 cc. The left ovary measures 3.7 x 1.8 x 1.4 cm, with a calculated ovarian volume of 4.9 cc. 1.8 x 1.3 x 2.0 cm simple right renal cyst. Other: No pathologic free abdominal or pelvic fluid. IMPRESSION: Simple right renal cyst. We strive to produce accurate, complete, and clear reports of imaging services. To assist us in improving patient care, this report was composed using standard report templates and voice recognition software. Therefore, it may contain abnormal punctuation, insertions and/or omissions. Occasional wrong-word or sound-alike substitutions may occur. Though we review the report and make efforts to correct it, we do recommend that the report be read carefully in proper context to recognize any text inaccuracies. Dictated by: Livia Grullon M.D. on 08/25/2025 at 15:14 Approved by: Livia Grullon M.D. on 08/25/2025 at 15:15
== END ==
LOC: US 13:43
PROVIDERS: PCP Nurse Practitioner Family; Referring Provider Obstetrics & Gynecology; Visit Provider Obstetrics & Gynecology
DX: N28.1 Cyst of kidney, acquired (principal); R10.20 Pelvic and perineal pain unspecified side; N92.6 Irregular menstruation, unspecified
CPT/HCPCS: 76856

== ENCOUNTER → 2025-11-13 07:40 | Outpatient (CLI) | payer OTHER, SELFPAY ==
[2025-11-13 09:21] LABS: Cholesterol 230 mg/dL (140-199); HDL Cholesterol 83 mg/dL (40-60); Triglycerides 75 mg/dL (35-150)
[2025-11-13 10:03] LABS: Ferritin 38 ng/mL (6-137)
== END ==
PROVIDERS: PCP Nurse Practitioner Family; Referring Provider Nurse Practitioner Family; Visit Provider Naturopath
DX: E61.1 Iron deficiency (principal); E78.00 Pure hypercholesterolemia, unspecified
CPT/HCPCS: 36415; 80061; 82728